=== PATIENT | male | born 1960 | race Caucasian/White ===

== ENCOUNTER 2021-11-28 23:22 | Emergency (ER) | payer OTHER | END 2021-11-29 02:33 | disposition home or self-care (01) | LOC: ER1 23:22 | DX: S93.402A Sprain of unspecified ligament of left ankle, initial encounter (principal); S93.602A Unspecified sprain of left foot, initial encounter; S80.02XA Contusion of left knee, initial encounter; Z86.73 Personal history of transient ischemic attack (TIA), and cerebral infarction without residual deficits; W01.0XXA Fall on same level from slipping, tripping and stumbling without subsequent striking against object, initial encounter; X50.1XXA Overexertion from prolonged static or awkward postures, initial encounter; Y92.009 Unspecified place in unspecified non-institutional (private) residence as the place of occurrence of the external cause | CPT/HCPCS: 73590; 73610; 73630; 99283 ==

== ENCOUNTER 2022-03-13 18:53 | Emergency (ER) | payer OTHER | END 2022-03-14 | disposition left against medical advice (07) | LOC: ER1 18:53 | DX: M25.512 Pain in left shoulder (principal); E11.9 Type 2 diabetes mellitus without complications | CPT/HCPCS: 73030; 99283 ==